=== PATIENT | male | born 1965 | race American Indian/Alaskan Native ===

== ENCOUNTER 2019-06-10 09:53 | Outpatient (CLI) | payer MEDICAID ==
[2019-06-10 10:57] LABS: Blood Urea Nitrogen 20 mg/dL (9-20)
--- NOTE | 2019-06-11 00:48 | Cat Scan Report ---
CT angio abd/femoral abd aorta INDICATION: I70.219Atherosclerosis of [place] arteries of extremities with int. TECHNIQUE: All CT scans at this location are performed using CT dose reduction for ALARA by means of automated e xposure control. Precontrast localizer images were obtained, followed by axial and 3-dimensional reconstruction images , performed at an independent workstation by the generation engineering technologist after IV bolus contrast injection. COMPARISON: None available. FINDINGS: Exam is suboptimal because of the patient's size. Abdominal aorta and iliac arteries are mildly atherosclerotic but patent without high-grade stenosis. Celiac axis, SMA, bilateral renal arteries and LEILANI are all patent. Both femoral and popliteal arteries are patent, with three-vessel runoff to both lower legs. IMPRESSION: 1. Atherosclerosis, but no arterial occlusion or high-grade stenosis. Signer Name: Jewel Mckinney MD Signed: 06/11/2019 12:44 AM Workstation Name: [id number]
== END 2019-06-10 09:54 | disposition home or self-care (01) ==
LOC: CT 09:53
PROVIDERS: ATTEND Radiology Diagnostic Radiology
DX: I70.219 Atherosclerosis of native arteries of extremities with intermittent claudication, unspecified extremity (principal); I35.0 Nonrheumatic aortic (valve) stenosis
CPT/HCPCS: 36415; 75635; 82565; 84520; Q9967